=== PATIENT | male | born 1970 | race African-American/Black ===

== ENCOUNTER 2021-07-26 12:21 | Emergency (ER) | payer OTHER ==
[~2021-07-26] VITALS: Ht 182.9 cm; Wt 125.2 kg
[2021-07-26 12:21] VITALS: BP 183/110
--- NOTE | 2021-07-26 12:24 | NUR ---
PATIENT AMBULATED TO BED 9 WITH A STEADY GAIT
[2021-07-26] MEDS ORDERED: MORPHINE SULFATE 4 MG/ML SYR IVP ONE ×2 (12:35→13:35)
[2021-07-26] MEDS ORDERED: NITROGLYCERIN 0.4 MG TAB SL ONE (12:35)
[2021-07-26 12:56] LABS: BASOPHILS # (AUTO) 0.2 K/uL (0.00-0.22); BASOPHILS % (AUTO) 1.4 % (0.0-2.0); EOSINOPHILS # (AUTO) 0.2 K/uL (0-0.4); EOSINOPHILS % (AUTO) 1.7 % (0.0-4.0); HEMATOCRIT 43.3 % (36-52); HEMOGLOBIN 14.9 g/dL (12.0-18.0); LYMPHOCYTES # (AUTO) 3.7 K/uL (2.0-11.5); LYMPHOCYTES % (AUTO) 29.8 % (20.5-51.1); MEAN CORPUSCULAR HEMOGLOBIN 30 pg (27-31); MEAN CORPUSCULAR HGB CONC 34 g/dL (33-37); MEAN CORPUSCULAR VOLUME 86.4 fL (80-94); MONOCYTES # (AUTO) 0.9 K/uL (0.8-1.0); MONOCYTES % (AUTO) 7.2 % (1.7-9.3); NEUTROPHILS # (AUTO) 7.4 K/uL (1.8-7.7); NEUTROPHILS % (AUTO) 59.9 % (42.2-75.2); PLATELET COUNT (AUTO) 284 K/uL (140-450); RED BLOOD CELL COUNT(AUTO) 5.01 MIL/uL (4.20-6.10); RED CELL DISTRIBUTION WIDTH 13.7 % (11.6-13.7); WHITE BLOOD COUNT (AUTO) 12.4 K/uL (4.8-10.8)
--- NOTE | 2021-07-26 13:08 | NUR ---
51Y MALE PRESENTS TO ED WITH CP/SOB SINCE THIS AM. PT STATES "HE TOOK A WALK THIS AM FELT FINE, BUT AFTER TAKING A SHOWER WHEN HE STARTED TO EXPIERNCE UPPER BACK PAIN, SOB, AND BECOME DIAPHORETIC. UPON ARRIVAL PATIENT IS DIAPHORETIC, TACHYCARDIC, AND EXCESS WORK OF BREATHING NOTED. PER PATIENT HE WAS AT [facility] ON THURSDAY THAT GOT ANGIO DONE AND PLACED 2 HEART STENTS. PTDENIES N/V/D; SKIN IS PINK/WARM; AAOX4 WITH EVEN AND STEADY GAIT; LUNGS CLEAR BL; PT DENIES ANY FEVER, OR COUGH AT THIS TIME; PATIENT STATES PAIN OF 0/10 AT THIS TIME; VSS; PATIENT POSITIONED FOR COMFORT; HOB ELEVATED; BEDRAILS UP X2; BED DOWN. ER MD MADE AWARE OF PT STATUS. PMH: DM2, HTN, HIGH CHOLESTEROL, 2 HEART STENTS THIS THURSDAY, AND ANGIOGRAM NKA MEDS: ASPIRIN, GLIPZIDE
--- NOTE | 2021-07-26 13:10 | NUR ---
PT TAKEN TO CT VIA [facility]
--- NOTE | 2021-07-26 13:19 | NUR ---
Patient to be transferred to [facility]. Is being transferred due to HIGHER LEVEL OF CARE. Receiving facility has accepting physician and available space. ER physician has signed transfer form. Patient or responsible republican has agreed to transfer and signed form. Patient belongings inventoried and will be sent with patient. Copy of nursing notes, lab reports, EKG, Physicians Orders and X-rays to be sent with patient. Report called to PETER OLIVEROS at receiving facility. [facility] ambulance service has been called for transfer. ETA is 1330.
[2021-07-26] MEDS ORDERED: MORPHINE SULFATE 2 MG/ML SYR ONE (13:26)
--- NOTE | 2021-07-26 13:29 | NUR ---
[facility] BEDSIDE FOR PT [place]
[2021-07-26 13:31] VITALS: BP 159/94
--- NOTE | 2021-07-26 13:32 | NUR ---
PT TAKEN TO [facility]IA [facility]
== END 2021-07-26 13:32 | disposition short-term general hospital (02) ==
LOC: MED 12:21
DX: I21.3 ST elevation (STEMI) myocardial infarction of unspecified site (principal); E11.9 Type 2 diabetes mellitus without complications; I10 Essential (primary) hypertension; Z98.890 Other specified postprocedural states
CPT/HCPCS: 36415; 71045; 71275; 74174; 80053; 83690; 84484; 85025; 96374; 96375; 96376; 99291; J1644; J2270; Q0092; Q9967; 93005